=== PATIENT | male | born 1990 | race Caucasian/White ===

== ENCOUNTER 2017-10-01 11:20 | Emergency (ER) | payer MEDICAID | END 2017-10-01 13:00 | disposition home or self-care (01) | LOC: D.ER 11:20 | DX: S90.122A Contusion of left lesser toe(s) without damage to nail, initial encounter (principal); X58.XXXA Exposure to other specified factors, initial encounter; Y93.89 Activity, other specified; Y92.89 Other specified places as the place of occurrence of the external cause; S93.505A Unspecified sprain of left lesser toe(s), initial encounter ==